=== PATIENT | female | born 1950 | race American Indian/Alaskan Native ===

== ENCOUNTER 2017-07-10 07:43 | Emergency (ER) | payer OTHER ==
[2017-07-10 07:48] VITALS: BMI 37.7
[2017-07-10 07:51] VITALS: BP 134/72; PULSE 80; RESP 20; TEMP 97.6; O2SAT 99
--- NOTE | 2017-07-10 08:12 | ED PDOC ---
HPI: General Adult Time Seen by Provider: 07/10/17 07:46 Chief Complaint (Nursing): Eye Problem History Per: Patient Current Symptoms Are (Timing): Still Present Severity: Mild Additional Complaint(s): Right eye pain x 4 months. Unable to see from right eye x 4 months. No trauma or injury. Denies other c/o. States homeless. Denies SI/HI. Past Medical History Vital Signs: Last Vital Signs Temp 97.6 F 07/10/17 07:50 Pulse 80 07/10/17 07:50 Resp 20 07/10/17 07:50 BP 134/72 07/10/17 07:50 Pulse Ox 99 07/10/17 08:22 - Medical History PMH: HTN Other PMH: Glaucoma - Family History Family History: States: Unknown Family Hx - Allergies Allergies/Adverse Reactions: Allergies Allergy/AdvReac Type Severity Reaction Status Date / Time No Known Allergies Allergy Verified 07/10/17 07:55 Review of Systems ROS Statement: Except As Marked, All Systems Reviewed And Found Negative Eyes: Positive for: Pain, Vision Change Physical Exam - Reviewed Nursing Documentation Reviewed: Yes Vital Signs Reviewed: Yes - Physical Exam Appears: Positive for: Non-toxic, No Acute Distress Head Exam: Positive for: ATRAUMATIC, NORMAL INSPECTION, NORMOCEPHALIC Skin: Positive for: Normal Color, Warm, DRY Eye Exam: Positive for: Other (Right eye pupil 3mm nonreactive. No light reflex. Unable to visualize fundus. Temporal deviation. Exotropia. IOP OD 11, OS 10) ENT: Positive for: Normal ENT Inspection Neck: Positive for: Normal, Painless ROM Cardiovascular/Chest: Positive for: Regular Rate, Rhythm Respiratory: Positive for: CNT, Normal Breath Sounds Gastrointestinal/Abdominal: Positive for: Normal Exam, Bowel Sounds, Soft Back: Positive for: Normal Inspection Extremity: Positive for: Normal ROM Neurologic/Psych: Positive for: Alert, Oriented. Negative for: Motor/Sensory Deficits - Laboratory Results Result Diagrams: 07/10/17 08:27 07/10/17 08:27 - ECG O2 Sat by Pulse Oximetry: 99 Disposition - Clinical Impression Clinical Impression: Eye pain, Glaucoma - Patient ED Disposition Is Patient to be Admitted: No Counseled Patient/Family Regarding: Studies Performed, Diagnosis, Need For Followup, Rx Given - Disposition Referrals: Anthony Escobedo MD [Staff Provider] - Disposition: Routine/Home Disposition Time: 09:54 Condition: FAIR Instructions: Glaucoma Forms: [employer] (Icelandic)
[2017-07-10] MEDS ORDERED: Tetracaine 0.5% Ophth 2 ML BOTTLE ONE (08:19)
[2017-07-10 08:37] LABS: BASO # 0.1 K/uL (0.0-0.2); BASO % 1.3 % (0.0-2.0); EOS # 0.1 K/uL (0.0-0.7); EOS % 2.6 % (0.0-4.0); HEMOGLOBIN 12.7 g/dL (12.0-16.0); LYMPH # 1.7 K/uL (1.0-4.3); LYMPH % 35.9 % (20.0-40.0); MEAN CELL VOLUME 83.3 fl (81.0-99.0); MEAN CORPUSCULAR HEMOGLOBIN 27.8 pg (27.0-31.0); MEAN CORPUSCULAR HGB CONC 33.4 g/dL (33.0-37.0); MEAN PLATELET VOLUME 8.7 fl (7.2-11.7); MONO # 0.4 K/uL (0.0-0.8); MONO % 7.6 % (0.0-10.0); NEUT # 2.5 K/uL (1.8-7.0); NEUT % 52.6 % (50.0-75.0); NRBC % 0.5 % (0.0-0.0); RBC 4.55 Mil/uL (3.80-5.20); RED CELL DISTRIBUTION WIDTH 15.7 % (11.5-14.5); WHITE BLOOD COUNT 4.7 K/uL (4.8-10.8)
[2017-07-10 08:50] LABS: ALB/GLOB RATIO 0.9 (1.0-2.1); ALBUMIN 3.9 g/dL (3.5-5.0); ALT/SGPT 20 U/L (9-52); AST/SGOT 25 U/L (14-36); BLOOD UREA NITROGEN 23 mg/dl (7-17); CALCIUM 9.1 mg/dL (8.4-10.2); GFR AFRICAN-AMERICAN > 60; GFR NON-AFRICAN AMERICAN > 60
--- NOTE | 2017-07-10 22:55 | CARD ---
APPROVED REPORT EKG Measurement Heart [id number] <Conclusion> Normal sinus rhythm Possible Left atrial enlargement Septal infarct, age undetermined Abnormal ECG
== END 2017-07-10 10:00 | disposition home or self-care (01) ==
LOC: H.ER 07:43
DX: H40.9 Unspecified glaucoma (principal); I10 Essential (primary) hypertension; Z59.0 Homelessness

== ENCOUNTER 2017-08-19 09:16 | Emergency (ER) | payer OTHER, SELFPAY ==
[2017-08-19 09:16] VITALS: BMI 37.7
[2017-08-19 09:34] VITALS: BP 134/60; PULSE 90; TEMP 97; O2SAT 98
--- NOTE | 2017-08-19 09:53 | ED PDOC ---
History of Present Illness History of Present Illness: Myah Mcfarland is a 66 year old female, with a past history of chronic glaucoma on right eye, who presents to the emergency department complaining of right knee pain onset for x1 year. Patient also reports a cold and flu-like symptoms going on for x4 months. Patient reports she was taking an unknown medication given to her by a friend. She did not take anything for the pain. She did not receive the flu shot this year and is concerned she had the flu for x4 months. Patient states the pain in the right knee is worst when she walks. However, she ambulated to the ER with no difficulties while carrying x2 pieces of luggage. She denies any new problems such as fever, chest pain, shortness of breath, leg swelling, fall or injuries. No further medical complaints. PMD: None provided. HPI: Influenza Time Seen by Provider: 08/19/17 09:28 Chief Complaint: Cough, Cold, Congestion Chief Complaint (Provider): Right knee pain and flu like symptoms History Per: Patient Exam Limitations: no limitations Onset/Duration Of Symptoms: Days (x1 year) Symptoms include: headache, bodyaches, nasal congestion. denies: fever, cough, chest pain, difficulty breathing Hx Influenza Vaccination: No Past Medical History Reviewed: Historical Data, Nursing Documentation, Vital Signs Vital Signs: Last Vital Signs Temp 97 F L 08/19/17 09:31 Pulse 90 08/19/17 09:31 Resp 18 08/19/17 09:31 BP 134/60 08/19/17 09:31 Pulse Ox 98 08/19/17 09:31 - Medical History PMH: HTN Other PMH: Chronic - Surgical History Surgical History: No Surg Hx - Family History Family History: States: Unknown Family Hx - Social History Current smoker - smoking cessation education provided: No Alcohol: None Drugs: Denies - Home Medications Home Medications: Ambulatory Orders Medication Instructions Recorded Naproxen 500 mg PO BID #20 tab 08/19/17 - Allergies Allergies/Adverse Reactions: Allergies Allergy/AdvReac Type Severity Reaction Status Date / Time No Known Allergies Allergy Verified 08/19/17 09:31 Review of Systems ROS Statement: Except As Marked, All Systems Reviewed And Found Negative Constitutional: Positive for: Chills, Other (body aches). Negative for: Fever ENT: Positive for: Nose Congestion Cardiovascular: Negative for: Chest Pain Respiratory: Negative for: Cough, Shortness of Breath Musculoskeletal: Positive for: Leg Pain (right knee pain). Negative for: Other (leg pain or swelling. ) Neurological: Positive for: Headache Physical Exam - Reviewed Nursing Documentation Reviewed: Yes Vital Signs Reviewed: Yes - Physical Exam Appears: Positive for: Well (comfortable), Non-toxic, No Acute Distress Head Exam: Positive for: ATRAUMATIC, NORMAL INSPECTION, NORMOCEPHALIC Skin: Positive for: Normal Color, Warm, Dry Eye Exam: Positive for: Normal appearance Neck: Positive for: Painless ROM, Supple Cardiovascular/Chest: Positive for: Regular Rate, Rhythm. Negative for: Murmur Respiratory: Positive for: Normal Breath Sounds. Negative for: Respiratory Distress Gastrointestinal/Abdominal: Positive for: Normal Exam, Soft (obese). Negative for: Tenderness Extremity: Positive for: Normal ROM (Full ROM to right knee). Negative for: Tenderness, Deformity (right knee), Swelling (right knee no erythema) Neurologic/Psych: Positive for: Alert, Oriented. Negative for: Motor/Sensory Deficits Medical Decision Making Medical Decision Making: Initial Impression: Chronic knee pain, likely arthritis, and chronic flu-like symptoms. Differential diagnosis includes: allergic rhinitis, sinusitis. Rule out UTI, Influenza. Initial Plan: --Urine dipstick --Knee 3 views RT [RAD] --Motrin tab 600 mg PO --Reevaluation -Considering the prolonged period of symptoms and testing, treatment of influenza not recommended. 11:13 Knee X-Ray FINDINGS: BONES: There is no acute displaced fracture or bone destruction. Bone alignment is normal. JOINTS: There is moderate tricompartmental degenerative osteoarthrosis with reduced joint spaces, marginal spurring and tibial spiking. JOINT EFFUSION: There is a small suprapatellar joint effusion. OTHER FINDINGS: None. IMPRESSION: Moderate tricompartmental degenerative osteoarthrosis and small suprapatellar joint effusion. Scribe Attestation: Documented by Navin Uribe, acting as a scribe for Elvira Purcell MD Provider Scribe Attestation: All medical record entries made by the Scribe were at my direction and personally dictated by me. I have reviewed the chart and agree that the record accurately reflects my personal performance of the history, physical exam, medical decision making, and the department course for this patient. I have also personally directed, reviewed, and agree with the discharge instructions and disposition. - ECG O2 Sat by Pulse Oximetry: 98 (RA) Pulse Ox Interpretation: Normal Disposition - Clinical Impression Clinical Impression: Knee pain, chronic - Patient ED Disposition Is Patient to be Admitted: No Doctor Will See Patient In The: Office Counseled Patient/Family Regarding: Studies Performed, Diagnosis, Need For Followup - Disposition Referrals: [facility] [Outside] Disposition: Routine/Home Disposition Time: 11:57 Condition: GOOD Additional Instructions: Take your medications as instructed. Follow up with your PCP within 1 week. Prescriptions: Naproxen 500 mg PO BID #20 tab Instructions: Knee Pain (DC)
--- NOTE | 2017-08-19 11:15 | RAD ---
PROCEDURE: Right Knee Radiographs. HISTORY: right knee pain COMPARISON: None. FINDINGS: BONES: There is no acute displaced fracture or bone destruction. Bone alignment is normal. JOINTS: There is moderate tricompartmental degenerative osteoarthrosis with reduced joint spaces, marginal spurring and tibial spiking. JOINT EFFUSION: There is a small suprapatellar joint effusion. OTHER FINDINGS: None. IMPRESSION: Moderate tricompartmental degenerative osteoarthrosis and small suprapatellar joint effusion.
[2017-08-19 12:12] VITALS: RESP 16
== END 2017-08-19 11:45 | disposition home or self-care (01) ==
LOC: H.ER 09:16
DX: M17.11 Unilateral primary osteoarthritis, right knee (principal); G89.29 Other chronic pain; H40.9 Unspecified glaucoma; I10 Essential (primary) hypertension

== ENCOUNTER 2017-12-22 10:59 | Emergency (ER) | payer OTHER ==
[2017-12-22 11:08] VITALS: BMI 36.1
[2017-12-22 11:09] VITALS: BP 132/62; PULSE 66; RESP 20; TEMP 98.2; O2SAT 98
--- NOTE | 2017-12-22 11:35 | ED PDOC ---
HPI: General Adult Time Seen by Provider: 12/22/17 11:33 Chief Complaint (Nursing): Abnormal Skin Integrity Chief Complaint (Provider): rash History Per: Patient (67 y/o female who is here with generalized rash x 1 week with moderate pruiritis. Patient lives in homeless [facility]. ) Past Medical History Reviewed: Historical Data, Nursing Documentation, Vital Signs Vital Signs: Last Vital Signs Temp 98.2 F 12/22/17 11:08 Pulse 66 12/22/17 11:08 Resp 20 12/22/17 11:08 BP 132/62 12/22/17 11:08 Pulse Ox 98 12/22/17 11:35 - Medical History PMH: HTN - Family History Family History: States: Unknown Family Hx - Immunization History Hx Tetanus Toxoid Vaccination: No Hx Influenza Vaccination: No Hx Pneumococcal Vaccination: No - Home Medications Home Medications: Ambulatory Orders Medication Instructions Recorded Prednisone [Deltasone] 20 mg PO DAILY #3 tablet 03/30/17 traMADol [Ultram] 50 mg PO TID #7 tab 03/30/17 Naproxen 500 mg PO BID #20 tab 08/19/17 Naproxen [Naprosyn] 500 mg PO Q12H #20 tab 08/23/17 Ibuprofen [Motrin] 600 mg PO Q6H PRN #20 tab 09/22/17 Permethrin [Elimite] 60 gm TP DAILY #1 cream..g. 09/22/17 Permethrin [Elimite] 60 gm TP ONCE PRN #60 cream..g. 12/22/17 - Allergies Allergies/Adverse Reactions: Allergies Allergy/AdvReac Type Severity Reaction Status Date / Time No Known Allergies Allergy Verified 12/22/17 11:16 Review of Systems ROS Statement: Except As Marked, All Systems Reviewed And Found Negative Physical Exam - Reviewed Nursing Documentation Reviewed: Yes Vital Signs Reviewed: Yes - Physical Exam Appears: Positive for: Well, Non-toxic, No Acute Distress Head Exam: Positive for: ATRAUMATIC, NORMAL INSPECTION, NORMOCEPHALIC Skin: Positive for: Normal Color, Warm, DRY Eye Exam: Positive for: EOMI, Normal appearance, PERRL ENT: Positive for: Normal ENT Inspection Neck: Positive for: Normal, Painless ROM Cardiovascular/Chest: Positive for: Regular Rate, Rhythm Respiratory: Positive for: CNT, Normal Breath Sounds Gastrointestinal/Abdominal: Positive for: Normal Exam, Soft Back: Positive for: Normal Inspection Extremity: Positive for: Normal ROM Neurologic/Psych: Positive for: Alert, Oriented - ECG O2 Sat by Pulse Oximetry: 98 - Progress ED Course And Treament: Elimite cream given in ED to patient. Disposition - Clinical Impression Clinical Impression: Scabies - Patient ED Disposition Is Patient to be Admitted: No - Disposition Disposition: Routine/Home Disposition Time: 12:52 Condition: FAIR Prescriptions: Permethrin [Elimite] 60 gm TP ONCE PRN #60 cream..g. PRN Reason: Itching / Pruritus Instructions: Scabies (DC)
[2017-12-22] MEDS: Permethrin 5% CREAM TOP ONE (12:07)
== END 2017-12-22 12:52 | disposition home or self-care (01) ==
LOC: H.ER 10:59
DX: B86 Scabies (principal); I10 Essential (primary) hypertension

== ENCOUNTER 2018-02-17 10:27 | Emergency (ER) | payer OTHER ==
[2018-02-17 10:27] VITALS: BMI 36.1
[2018-02-17 10:36] VITALS: TEMP 96.8; O2SAT 98
--- NOTE | 2018-02-17 12:12 | RAD ---
Date of service: 02/17/2018 PROCEDURE: Right Knee Radiographs. HISTORY: pain COMPARISON: 08/23/2017 FINDINGS: BONES: Tricompartmental spurring with intervening disc space narrowing. Pedunculated spurs versus concomitant intra-articular loose bodies-considerations. No fracture or lytic lesion. JOINTS: Arthrosis JOINT EFFUSION: None. OTHER FINDINGS: None. IMPRESSION: Similar tricompartmental osteoarthrosis with probable intra-articular ossific debris and intra-articular pedunculated osteophytes. No interval fracture.
--- NOTE | 2018-02-17 12:31 | CT ---
Date of service: 02/17/2018 PROCEDURE: CT HEAD WITHOUT CONTRAST. HISTORY: headache COMPARISON: 09/22/2017 TECHNIQUE: Axial computed tomography images were obtained through the head/brain without intravenous contrast. Radiation dose: Total exam DLP = 789 mGy-cm. This CT exam was performed using one or more of the following dose reduction techniques: Automated exposure control, adjustment of the mA and/or kV according to patient size, and/or use of iterative reconstruction technique. FINDINGS: HEMORRHAGE: No intracranial hemorrhage. BRAIN: No mass effect or edema. No atrophy or chronic microvascular ischemic changes. VENTRICLES: Unremarkable. No hydrocephalus. CALVARIUM: Unremarkable. PARANASAL SINUSES: Unremarkable as visualized. No significant inflammatory changes. MASTOID AIR CELLS: Unremarkable as visualized. No inflammatory changes. OTHER FINDINGS: None. IMPRESSION: No intracranial hemorrhage or mass effect.. No interval pathology noted.
--- NOTE | 2018-02-17 13:38 | ED PDOC ---
HPI: General Adult History Per: Patient Additional Complaint(s): Pt. states for the past 2 days she's had pruritus on her back and on her head. State she feels as if there is something crawling in those areas. Of note, pt. is homeless and lives in a skilled nursing and has hx of scabies. Also reports atraumatic R knee pain for several months. Denies trauma, fever, head injury, headache, numbness, tingling, weakness, chest pain, SOB. <Xavier Sharma - Last Filed: 02/17/18 13:42> <Wood Hanna - Last Filed: 02/18/18 16:47> Time Seen by Provider: 02/17/18 10:47 Chief Complaint (Nursing): Lower Extremity Problem/Injury Past Medical History Reviewed: Historical Data, Nursing Documentation, Vital Signs Vital Signs: Last Vital Signs Temp 96.8 F L 02/17/18 10:41 Pulse 74 02/17/18 10:41 Resp 20 02/17/18 10:41 BP 127/70 02/17/18 10:41 Pulse Ox 98 02/17/18 10:41 - Medical History PMH: HTN - Family History Family History: States: No Known Family Hx - Immunization History Hx Tetanus Toxoid Vaccination: No Hx Influenza Vaccination: No Hx Pneumococcal Vaccination: No <Xavier Sharma - Last Filed: 02/17/18 13:42> Vital Signs: Last Vital Signs Temp 96.8 F L 02/17/18 10:41 Pulse 70 02/17/18 15:30 Resp 18 02/17/18 15:30 BP 120/72 02/17/18 15:30 Pulse Ox 98 02/17/18 15:30 <Wood Hanna - Last Filed: 02/18/18 16:47> - Home Medications Home Medications: Ambulatory Orders Medication Instructions Recorded RX: Prednisone [Deltasone] 20 mg PO DAILY #3 tablet 03/30/17 RX: traMADol [Ultram] 50 mg PO TID #7 tab 03/30/17 RX: Naproxen 500 mg PO BID #20 tab 08/19/17 Naproxen [Naprosyn] 500 mg PO Q12H #20 tab 08/23/17 Ibuprofen [Motrin] 600 mg PO Q6H PRN #20 tab 09/22/17 Permethrin [Elimite] 60 gm TP DAILY #1 cream..g. 09/22/17 Permethrin [Elimite] 60 gm TP ONCE PRN #60 cream..g. 12/22/17 - Allergies Allergies/Adverse Reactions: Allergies Allergy/AdvReac Type Severity Reaction Status Date / Time No Known Allergies Allergy Verified 02/17/18 10:41 Review of Systems ROS Statement: Except As Marked, All Systems Reviewed And Found Negative <Xavier Sharma - Last Filed: 02/17/18 13:42> Physical Exam - Physical Exam Appears: Positive for: Well, Non-toxic, No Acute Distress Head Exam: Positive for: ATRAUMATIC, NORMAL INSPECTION, NORMOCEPHALIC Skin: Positive for: Normal Color, Warm. Negative for: Rash ENT: Positive for: Normal ENT Inspection Cardiovascular/Chest: Positive for: Regular Rate, Rhythm Respiratory: Positive for: Normal Breath Sounds. Negative for: Respiratory Distress Pulses-Dorsalis Pedis (L): 2+ Pulses-Dorsalis Pedis (R): 2+ Gastrointestinal/Abdominal: Positive for: Normal Exam, Soft. Negative for: Tenderness Back: Positive for: Normal Inspection. Negative for: L CVA Tenderness, R CVA Tenderness, Vertebral Tenderness Extremity: Positive for: Other (R knee with mild tenderness and crepitus without swelling, warmth, erythema or break in skin integrity) Neurologic/Psych: Positive for: Alert, Oriented (x3), Gait (steady, unassisted). Negative for: Aphasia, Facial Droop <Xavier Sharma - Last Filed: 02/17/18 13:42> - ECG O2 Sat by Pulse Oximetry: 98 - Radiology X-Ray: Read By Radiologist (R knee xray) X-Ray Interpretation: Other (Similar tricompartmental osteoarthrosis with probable intra-articular ossific debris and intra-articular pedunculated osteophytes.) - Progress ED Course And Treament: CT head w/o contrast: No intracranial hemorrhage or mass effect. No interval pathology noted. Elimite given to patient in ED. <Xavier Sharma - Last Filed: 02/17/18 13:42> Disposition - Patient ED Disposition Is Patient to be Admitted: No - Disposition Disposition: Routine/Home Disposition Time: 12:45 <Xavier Sharma - Last Filed: 02/17/18 13:42> <Wood Hanna - Last Filed: 02/18/18 16:47> - Clinical Impression Clinical Impression: Knee pain, Scabies - Disposition Referrals: [facility] [Outside] Condition: STABLE Additional Instructions: BILL BATISTA, thank you for letting us take care of you today. Your provider was Wood Hanna MD and you were treated for HEADACHE, LEG PAIN. The emergency medical care you received today was directed at your acute symptoms. If you were prescribed any medication, please fill it and take as directed. It may take several days for your symptoms to resolve. Return to the Emergency Department if your symptoms worsen, do not improve, or if you have any other problems. Please contact your doctor or call one of the physicians/clinics you have been referred to that are listed on the Patient Visit Information form that is included in your discharge packet. Bring any paperwork you were given at discharge with you along with any medications you are taking to your follow up visit. Our treatment cannot replace ongoing medical care by a primary care provider outside of the emergency department. Thank you for allowing the [facility] team to be part of your care today. If you had an X-Ray or CT scan: A Radiologist will review the ED reading if any change in treatment is needed we will contact you. If you had a blood, urine, or wound culture: It will take several days for the results, if any change in treatment is needed we will contact you. If you had an STI test: It will take 48 hours for the results. Please call after 1 week if you have not heard back. Instructions: Scabies (DC), Knee Pain (DC) Forms: [employer] (Lebanese) Addendum Addendum: 02/18/18 16:47 Reviewed PA chart and agree. <Wood Hanna - Last Filed: 02/18/18 16:47>
[2018-02-17] MEDS ORDERED: Permethrin 5% CREAM TOP STA (13:41)
[2018-02-17 17:16] VITALS: BP 120/72; PULSE 70; RESP 18
== END 2018-02-17 15:36 | disposition home or self-care (01) ==
LOC: H.ER 10:27
DX: B86 Scabies (principal); M25.561 Pain in right knee; Z59.0 Homelessness; I10 Essential (primary) hypertension